=== PATIENT | female | born 1975 | race Caucasian/White ===

== ENCOUNTER 2017-10-19 21:54 | Emergency (ER) | payer OTHER ==
[2017-10-19] MEDS ORDERED: DIPH,PERTUSS(ACELL),TET VAC/PF 0.5 ML DISP.SYRIN IM ONE ×2 (22:42→22:44)
[2017-10-19] MEDS ORDERED: TRIPLE ANTIBIOTIC OINTMENT PAC 1 PACKET TOP ONE (22:45)
[2017-10-19 22:58] VITALS: BP 128/76
--- NOTE | 2017-10-20 00:18 | ED Physician Documentation ---
General Adult - HISTORIAN Historian: patient - HPI Stated Complaint: Lac. 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 Onset: minutes (20) Timing: still present Severity: moderate Modifying Factors: bleeding uncontrolled Context: cut while cutting deer sausage Quality: moderate Location: left middle finger Further Comments: no Last known Well Date: 10/19/17 Last Known Well Time: 21:00 - ROS CONST: no problems EYES/ENT: none CVS/RESP: none GI/: none MS/SKIN/LYMPH: other (laceration left 3rd finger) NEURO/PSYCH: denies: headache, fainting, dizziness, tingling, numbness, difficulty walking, difficulty with speech, anxiety, depression - PAST HX Past History: none Other History: none Surgeries/Procedures: none Immunizations: tetanus Allergies/Adverse Reactions: Allergies Allergy/AdvReac Type Severity Reaction Status Date / Time No Known Allergies Allergy Verified 10/19/17 22:19 Home Medications: Ambulatory Orders Medication Instructions Recorded NK [NK] 10/19/17 - SOCIAL HX Smoking History: non-smoker Alcohol Use: none Drug Use: none - FAMILY HX Family History: No - VITAL SIGNS Vital Signs: Vital Signs Temp Pulse Resp BP Pulse Ox 52 L 14 128/76 98 10/19/17 22:50 10/19/17 22:50 10/19/17 22:50 10/19/17 21:54 - REVIEWED ASSESSMENTS Nursing Assessment Reviewed: Yes Vitals Reviewed: Yes Procedures Wound Location: upper extremity Wound Length: 3 cm Wound's Depth, Shape: into muscle, flap Wound Explored: no foreign body removed Irrigated w/ Saline (ccs): 100 Betadine Prep?: No Anesthesia: 2% Lidocaine (nerve block, 6 cc medial base of digit, 6 cc lateral base of digit) Volume of Anesthetic: 12 cc Wound Debrided: minimal Wound Repaired With: sutures Suture Size/Type: 3:0, proline Number of Sutures: 7 Layer Closure?: No Sterile Dressing Applied?: Yes Splint Applied?: No Sling Applied?: No Progress - Results/Orders Results/Orders: no testing ordered - Progress Progress: pt. cleaned with sterile saline, angela oint applied and a sterile tub gauze dressing with band aid to 2nd digit superficial lac. Critical Care Note - Critical Care Note Total Time (mins): 30 ED Results Lab/Radiology - Lab Results Lab Results: none ordered - Radiology Radiology Impressions: none ordered - Orders Orders: ED Orders Category Date Time Status Diph,Pertuss(Acell),Tet Vac/Pf [Adacel] Med 10/19/17 22:42 Discontinued 0.5 ml IM .ONCE ONE Diph,Pertuss(Acell),Tet Vac/Pf [Adacel] Med 10/19/17 22:44 Discontinued 0.5 ml IM .STK-MED ONE Triple Antibiotic Ointment Pac [Neosporin Packet] Med 10/19/17 22:45 Discontinued 1 packet TOP 1T ONE General Adult Physical Exam - PHYSICAL EXAM GENERAL APPEARANCE: mild distress EENT: eye inspection normal, ENT inspection normal, pharynx normal, no signs of dehydration, ANALY, no nystagmus, TM's nml NECK: normal inspection, thyroid normal, supple RESPIRATORY: no resp distress, chest non-tender CVS: reg rate & rhythm, heart sounds normal, equal pulses, no murmur ABDOMEN: soft, no organomegaly, normal bowel sounds, no abdominal bruit, no distension, non-tender BACK: normal inspection, no CVA tenderness SKIN: other (3 cm flap laceration palmar aspect of left 3rd finger between MP joint and PIP joint, superficial lac left 2nd finger between DIP and PIP joints , palmar aspect) EXTREMITIES: normal range of motion, no edema NEURO: oriented X3, CN's nml as tested, motor nml, sensation nml, cognition normal Discharge Clincal Impression: Laceration Referrals: Narayan Shanks MD [Primary Care Provider] - 2 Days Comments: pt. discharged in stable condition to care of with suture care instructions Condition: Stable Disposition: 01 HOME, SELF-CARE Decision to Admit: NO Decision Time: 22:45
== END 2017-10-19 22:50 | disposition home or self-care (01) ==
LOC: ED 21:54
DX: S61.213A Laceration without foreign body of left middle finger without damage to nail, initial encounter (principal); X58.XXXA Exposure to other specified factors, initial encounter; Y93.9 Activity, unspecified; Y99.9 Unspecified external cause status
CPT/HCPCS: 12002; 90471; 90715; 99283